=== PATIENT | male | born 1995 | race African-American/Black ===

== ENCOUNTER 2022-09-08 20:58 | Emergency (ER) | payer OTHER ==
[~2022-09-08] VITALS: Ht 175.3 cm; Wt 97.5 kg
[2022-09-08] MEDS ORDERED: TETANUS/DIPHTHERIA TOX ADULT 0.5 ML SYR IM ONE (21:30)
[2022-09-08] MEDS ORDERED: LIDOCAINE HCL 1% LOCAL INJ 20 ML VIAL INJ ONE (21:30)
[2022-09-08] MEDS ORDERED: BACITRACIN ZINC 0.9GM TP ONE ×2 (23:30)
[2022-09-08] MEDS ORDERED: CEPHALEXIN500 MG PO (23:31)
[2022-09-08 23:35] VITALS: PULSE 56; RESP 18; O2SAT 99
== END 2022-09-08 23:40 | disposition home or self-care (01) ==
LOC: ER 21:02
DX: S01.112A Laceration without foreign body of left eyelid and periocular area, initial encounter (principal); W50.0XXA Accidental hit or strike by another person, initial encounter; Y93.67 Activity, basketball; Y92.310 Basketball court as the place of occurrence of the external cause
CPT/HCPCS: 12013; 70486; 90471; 90714; 99283; J2001